=== PATIENT | female | born 1990 | race African-American/Black ===

== ENCOUNTER 2016-12-06 16:19 | Emergency (ER) | payer OTHER ==
[~2016-12-06] VITALS: Ht 170.2 cm; Wt 97.5 kg
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
--- NOTE | 2016-12-06 16:59 | Diagnostic Imaging Report ---
Indication: PAIN Technique: 3 views of the are knee Comparison: None Findings:No acute fractures. No dislocations. Joint spaces are preserved. Impression:Negative
[2016-12-06] MEDS ORDERED: ROBAXIN-750750 MG PO (17:03)
[2016-12-06] MEDS ORDERED: IBUPROFEN600 MG ORAL (17:03)
[2016-12-06 17:15] VITALS: BP 102/66
== END 2016-12-06 17:15 | disposition home or self-care (01) ==
LOC: EMR 17:08
DX: S80.02XA Contusion of left knee, initial encounter (principal); T14.8 Other injury of unspecified body region; V43.52XA Car driver injured in collision with other type car in traffic accident, initial encounter; Y93.9 Activity, unspecified; Y92.410 Unspecified street and highway as the place of occurrence of the external cause; M54.5 Low back pain; Z88.0 Allergy status to penicillin
CPT/HCPCS: 99284

== ENCOUNTER 2019-04-29 10:27 | Emergency (ER) | payer OTHER ==
[~2019-04-29] VITALS: Ht 170.2 cm; Wt 97.5 kg
[~2019-04-29 10:27] MED LIST: IBUPROFEN600 MG ORAL; ROBAXIN-750750 MG PO
[2019-04-29] MEDS ORDERED: NKM (11:05)
[2019-04-29 11:07] VITALS: BP 128/89
[2019-04-29] MEDS ORDERED: Albuterol/Ipratropium 3ml neb HHN ONE (11:45)
[2019-04-29] MEDS ORDERED: PREDNISONE20 MG ORAL (12:42)
[2019-04-29] MEDS ORDERED: ALBUTEROL SULF8.5 GM INH (12:42)
--- NOTE | 2019-04-29 12:46 | Emergency Room Report ---
History of Present Illness General Chief Complaint: Flu Like Symptoms Source: Patient Present Illness HPI Patient is a 28-year-old female presents after increased cough for the past few days. She history of asthma as a child but has not had any symptoms for several years. She denies any fever. She reports of increased sore throat nonproductive cough. Denies any vomiting. Denies being . She reports having some chest tightness. Denies any leg pain or swelling. No recent hemoptysis. Denies any current abdominal pain. Allergies: Coded Allergies: PENICILLINS (Verified Allergy, Unknown, 04/29/19) Patient History Past Medical History: see triage record Last Menstrual Period: monday Now: No Reviewed Nursing Documentation: PMH: Agreed; PSxH: Agreed Nursing Documentation-PMH Past Medical History: No History, Except For Hx Asthma: Yes Review of Systems All Other Systems: negative except mentioned in HPI Physical Exam Vital Signs Date Time Temp Pulse Resp B/P (MAP) Pulse Ox O2 Delivery O2 Flow Rate FiO2 04/29/19 11:00 98.4 87 20 136/93 (107) 98 Room Air 04/29/19 11:53 21 General Appearance: well appearing, no apparent distress, alert, GCS 15 Head: normocephalic, atraumatic ENT: hearing grossly normal, normal voice Neck: full range of motion, supple Respiratory: no respiratory distress, speaking full sentences, wheezing Cardiovascular #1: normal inspection Gastrointestinal: normal inspection Musculoskeletal: normal inspection Neurologic: alert, motor strength/tone normal, reservation sales agent III-XII nml as tested, oriented x3, normal gait Psychiatric: normal inspection, mood/affect normal Skin: no rash Medical Decision Making Diagnostic Impression: Primary Impression: Acute bronchitis ER Course Patient presented for cough. Differential diagnosis included but was not limited to bronchitis, pneumonia, pulmonary embolism, pericarditis, asthma, foreign body. Urine test was negative. Patient was given breathing treatment with improvement. She was given prescription for oral steroids as well as inhaler. Patient was advised to follow-up with primary care physician for recheck. She advised to return if worse. This medical record is generated with [email or web address] rewind operator software. There may be some rewind operator discrepancies related to use of this software Last Vital Signs Date Time Temp Pulse Resp B/P (MAP) Pulse Ox O2 Delivery O2 Flow Rate FiO2 04/29/19 11:53 74 18 100 Room Air 21 83 18 100 04/29/19 11:07 98.2 128/89 Status: improved Disposition: HOME, SELF-CARE Condition: Stable Scripts Prednisone* (PREDNISONE*) 20 Mg Tablet 40 MG ORAL DAILY, #10 TAB Prov: Edvin Melgar MD 04/29/19 Albuterol Sulfate* (ALBUTEROL SULFATE MDI*) 8.5 Gm Hfa.aer.ad 2 PUFF INH Q6H, #1 INH 0 Refills Prov: Edvin Melgar MD 04/29/19 Patient Instructions: Acute Bronchitis Edvin Melgar MD Apr 29, 2019 12:46
[2019-04-29 12:50] VITALS: BP 121/82
== END 2019-04-29 13:00 | disposition home or self-care (01) ==
LOC: EMR 11:40
DX: J20.9 Acute bronchitis, unspecified (principal); Z88.0 Allergy status to penicillin
CPT/HCPCS: 81025; Z7502; 99284; J7620